=== PATIENT | female | born 1945 | race Caucasian/White ===

== ENCOUNTER → 2016-10-19 | Outpatient (CLI) | payer OTHER | LOC: FIMAGING 12:51 | PROVIDERS: ATTEND Neurological Surgery | DX: Z09 Encounter for follow-up examination after completed treatment for conditions other than malignant neoplasm (principal); Z98.1 Arthrodesis status; M50.321 Other cervical disc degeneration at C4-C5 level ==

== ENCOUNTER 2017-03-16 08:21 | Day surgery (SDC) | payer OTHER ==
[2017-03-16] MEDS ORDERED: LR 1,000 ML IV ONE (08:32)
[2017-03-16] MEDS ORDERED: LIDOCAINE 1% 2 ML INJ ID PRN (08:32)
--- NOTE | 2017-03-16 10:19 | PDGENHP ---
History & Physical Chief Complaint: dysphagia, hx of Crohn's. Relevant Physical Exam: GEN: NAD. Cardiac: RRR. Lungs: CTA B. Abd: SOft, nt, nd
[2017-03-16] MEDS ORDERED: LIDOCAINE 2% 5 ML SDV ONE (10:23)
[2017-03-16] MEDS ORDERED: PROPOFOL/EMULSION 500 MG/50 ML BOTTLE IV ONE (10:23)
[2017-03-16] MEDS ORDERED: ALBUTEROL 3 ML DEYVIAL IH PRN (10:25)
[2017-03-16] MEDS ORDERED: ONDANSETRON 4 MG/2 ML VIAL IVP PRN (10:25)
[2017-03-16] MEDS ORDERED: LR 500 ML IV PRN (10:25)
[2017-03-16] MEDS ORDERED: NALOXONE HCL 0.4 MG/ML INJ IVP PRN (10:25)
--- NOTE | 2017-03-16 10:25 | PDANEPAE ---
ANE Past Medical History - Cardiovascular History Hx Hypertension: No Hx Arrhythmias: No Hx Chest Pain: No Hx Coronary Artery / Peripheral Vascular Disease: No Hx CHF / Valvular Disease: No Hx Palpitations: No Cardiovascular History Comment: ELEVATED CHOL. HEART MURMUR - Pulmonary History Hx COPD: No Hx Asthma/Reactive Airway Disease: No Hx Recent Upper Respiratory Infection: No Hx Oxygen in Use at Home: Yes O2 in Use at Home (L/minute): 2 Hx Sleep Apnea: No Sleep Apnea Screening Result - Last Documented: Negative Pulmonary History Comment: [place] DX WITH HYPOXEMIA AT HS - Neurologic History Hx Cerebrovascular Accident: No Hx Seizures: No Hx Dementia: No Neurologic History Comment: NUMBNESS RT ARM AND PAIN RT SHOULDER BLADE. PREV HERNIATED DISC L-5 - Endocrine History Hx Diabetes: No - Renal History Hx Renal Disorders: No - Liver History Hx Hepatic Disorders: No - Neurological & Psychiatric Hx Hx Neurological and Psychiatric Disorders: Yes Neurological / Psychiatric History Comment: DEPRESSION - Cancer History Hx Cancer: No - Congenital Disorder History Hx Congenital Disorders: No - GI History Hx Gastrointestinal Disorders: Yes Gastrointestinal History Comment: CROHNS DX - Other Health History Other Health History: RHEUMATOID ARTHRITIS - Chronic Pain History Chronic Pain: Yes (LUMBAR AND RT SHLDR) - Surgical History Prior Surgeries: LT TOTAL SHLDR 10/2016 AT [facility]. CERVICAL FUSION 10/15/2014. 07/10 c5-t[address] ruma [facility]. DMITRI BUNIONECTOMY AND HAMMER TOE REPAIR. DMITRI CATARACT ANE Review of Systems Review of Systems: - Exercise capacity METS (RN): 4 METS ANE Patient History - Allergies Allergies/Adverse Reactions: prednisolone Allergy (Verified 06/26/14 10:00) - Home Medications Home Medications: Atorvastatin Calcium [Lipitor 40 mg (*)] 40 mg PO DAILY 06/19/14 [Last Taken 07/27] Cholecalciferol Vit D3 [Vitamin D3 (*)] 1,000 units PO DAILY 06/19/14 [Last Taken 03/15/17] Hydrochlorothiazide [HCTZ (*)] 25 mg PO DAILY06 06/19/14 [Last Taken 03/15/17] Leflunomide [Arava 20 mg (*)] 20 mg PO DAILY06 06/19/14 [Last Taken 03/15/17] Omeprazole [Prilosec] 40 mg PO BID 06/19/14 [Last Taken 03/16/17 07:00] Zoloft 100mg (RX) 150 mg PO DAILY06 06/19/14 [Last Taken 03/16/17 07:00] Gabapentin [Neurontin 400 MG (*)] 400 mg PO HS 06/26/14 [Last Taken 03/15/17] Mesalamine [Lialda] 2.4 gm PO DAILY06 10/11/14 [Last Taken 03/16/17 07:00] Diphenhydramine HCl 12.5 mg PRN 03/16/17 [Last Taken 03/15/17] - NPO status NPO Since - Liquids (Date): 03/16/17 NPO Since - Liquids (Time): 02:00 NPO Since - Solids (Date): 03/15/17 NPO Since - Solids (Time): 09:00 - Smoking Hx Smoking Status: Former smoker - Family Anes Hx Family Hx Anesthesia Complications: NEG ANE Labs/Vital Signs - Vital Signs Blood Pressure: 150/86 Heart Rate: 67 Respiratory Rate: 16 O2 Sat (%): 93 Height: 154.94 cm Weight: 61.235 kg ANE Physical Exam - Airway Neck exam: FROM, decreased ROM, spinal fusion Mallampati Score: Class 2 Mouth exam: normal dental/mouth exam - Pulmonary Pulmonary: no respiratory distress, no rales or rhonchi, reduced air movement - Cardiovascular Cardiovascular: regular rate and rhythym, no murmur, rub, or gallop - ASA Status ASA Status: III ANE Anesthesia Plan Anesthesia Plan: GA with mask
--- NOTE | 2017-03-16 11:06 | POSTANESTH ---
Post Anesthetic Evaluation Cardiovascular Status: Normal, Stable, Similar to Pre-Op Cond Respiratory Status: Normal, Stable, Similar to Pre-op Cond. Level of Consciousness/Mental Status: Can Participate in Eval Pain Control: Adequate, Prn Tx Ordered Nausea/Vomiting Control: Adequate, Prn Tx Ordered Complications Possibly Related to Anesthesia: None Noted
--- NOTE | 2017-03-16 11:24 | GIREPORT ---
[facility] Surgical Services - Endoscopy Department Patient Name: Leda Larry Procedure Date: 03/16/2017 10:40 AM Patient Type: Outpatient Attending / ER Physician: Damion Calvillo MD Procedure: Colonoscopy Indications: High risk colon cancer surveillance: Crohn's disease large intestine Providers: Damion Calvillo MD Medicines: Monitored Anesthesia Care Complications: No immediate complications. Description of Procedure: After obtaining informed consent, the scope was passed under direct vis ion. Throughout the procedure, the patient's blood pressure, pulse, and oxyg en saturations were monitored continuously. The was introduced through the anus and advanced to the terminal ileum, with identification of the appendic eal orifice and IC valve. The colonoscopy was performed without difficulty. The patient tolerated the procedure well. The quality of the bowel preparat ion was good. Findings: The perianal and digital rectal examinations were normal. The terminal ileum appeared normal. A few small localized non-bleeding erosions were found in the ascending colon. No stigmata of recent bleeding were seen. Otherwise normal mucosa was found in the entire colon. Biopsies were ta maria de jesus with a cold forceps for histology. Verification of patient identificati on for the specimen was done by the physician and nurse using the patient' s name and date. Estimated blood loss was minimal. The retroflexed view of the distal rectum and anal verge was normal and showed no anal or rectal abnormalities. Estimated Blood Loss: Estimated blood loss: none. Post Op Diagnosis: - The examined portion of the ileum was normal. - A few minor erosions were seen in the ascending colon which may be secondary to Crohn's. - Otherwise the entire examined colon. Biopsied. - The distal rectum and anal verge are normal on retroflexion view. Recommendation: - Discharge patient to home (with escort). - Resume previous diet. - Continue present medications. - Follow up in our clinic as previously scheduled. - Repeat colonoscopy in 2 years to assess disease activity. - Your pathology results are available within 10 days. - Thank you for allowing me to participate in the care of your patient. Attending Participation: I personally performed the entire procedure. Damion Calvillo MD Damion Calvillo MD 03/16/2017 11:23:37 AM This report has been signed electronicallyDaricardo Calvillo MD Number of Addenda: 0 Note Initiated On: 03/16/2017 10:40 AM Total Procedure Duration Time 0 hours 19 minutes 58 seconds [email or web address]
[2017-03-16 12:18] VITALS: PULSE 76; TEMP 97.9
[2017-03-16 12:34] VITALS: RESP 16
[2017-03-16 12:50] VITALS: BP 125/74; O2SAT 94
--- NOTE | 2017-03-16 14:43 | GIREPORT ---
[facility] Surgical Services - Endoscopy Department Patient Name: Leda Larry Procedure Date: 03/16/2017 10:26 AM Patient Type: Outpatient Attending MD/ ER Physician: Damion Calvillo MD Procedure: Upper GI endoscopy Indications: Dysphagia Providers: Damion Calvillo MD Medicines: Monitored Anesthesia Care Complications: No immediate complications. Description of Procedure: After obtaining informed consent, the endoscope was passed under direct vision. Throughout the procedure, the patient's blood pressure, pulse, and oxygen saturations were monitored continuously. The Endoscope was intro duced through the mouth, and advanced to the second part of duodenum. The [facility] er GI endoscopy was accomplished without difficulty. The patient tolerated th e procedure well. Findings: No endoscopic abnormality was evident in the esophagus to explain the patient's complaint of dysphagia. The examined esophagus was normal. Biopsies were taken with a cold for eps for histology. Verification of patient identification for the specimen was done by the physician and nurse using the patient's name and date . Estimated blood loss was minimal. The Z-line was regular and was found 40 cm from the incisors. The entire examined stomach was normal. Biopsies were taken with a cold forceps for histology. Verification of patient identification for the specimen was done by the physician and nurse using the patient's name a nd date. Estimated blood loss was minimal. The examined duodenum was normal. Biopsies were taken with a cold force ps for histology. Verification of patient identification for the specimen was done by the physician and nurse using the patient's name and date . Estimated blood loss: None. Estimated Blood Loss: Estimated blood loss: none. Post Op Diagnosis: - No endoscopic esophageal abnormality to explain patient's dysphagia. - Normal esophagus. Biopsied. - Z-line regular, 40 cm from the incisors. - Normal stomach. Biopsied. - Normal examined duodenum. Biopsied. Recommendation: - Discharge patient to home (with escort) after the colonoscopy is comp leted. - Resume previous diet. - Continue present medications. - Your pathology results are available within 10 days. - Thank you for allowing me to participate in the care of your patient. Attending Participation: I personally performed the entire procedure. Damion Calvillo MD Damion Calvillo MD 03/16/2017 2:43:31 PM This report has been signed electronicallyDaricardo Calvillo MD Number of Addenda: 0 Note Initiated On: 03/16/2017 10:26 AM [email or web address]
== END 2017-03-16 12:55 | disposition home or self-care (01) ==
LOC: FSGY 08:21
PROVIDERS: ATTEND Internal Medicine Gastroenterology
PROC: 0DB68ZX Excision of Stomach, Via Natural or Artificial Opening Endoscopic, Diagnostic (ICD-10-PCS; principal; 2017-03-16 10:00)
PROC: 0DB98ZX Excision of Duodenum, Via Natural or Artificial Opening Endoscopic, Diagnostic (ICD-10-PCS; principal; 2017-03-16 10:00)
PROC: 0DB58ZX Excision of Esophagus, Via Natural or Artificial Opening Endoscopic, Diagnostic (ICD-10-PCS; principal; 2017-03-16 10:00)
PROC: 0DBK8ZX Excision of Ascending Colon, Via Natural or Artificial Opening Endoscopic, Diagnostic (ICD-10-PCS; 2017-03-16 10:00)
DX: R13.10 Dysphagia, unspecified (principal); R19.7 Diarrhea, unspecified; K50.00 Crohn's disease of small intestine without complications
CPT/HCPCS: J2704

== ENCOUNTER → 2017-08-03 | Outpatient (CLI) | payer OTHER | LOC: FIMAGING 12:32 | PROVIDERS: ATTEND Physician Assistant | DX: M79.661 Pain in right lower leg (principal) ==

== ENCOUNTER → 2018-04-27 | Outpatient (CLI) | payer OTHER | LOC: FIMAGING 10:16 | PROVIDERS: ATTEND Internal Medicine Rheumatology | DX: Z13.820 Encounter for screening for osteoporosis (principal); M85.89 Other specified disorders of bone density and structure, multiple sites ==

== ENCOUNTER → 2018-05-11 | Outpatient (CLI) | payer OTHER | LOC: BHFA 08:30 | PROVIDERS: ATTEND Internal Medicine Cardiovascular Disease | DX: R07.9 Chest pain, unspecified (principal); R06.02 Shortness of breath | CPT/HCPCS: 78452; 93017; A9500; J2785 ==